=== PATIENT | male | born 1970 ===

== ENCOUNTER → 2017-02-06 | Outpatient (REF) | LOC: ZLAB.WCH 14:53 | DX: Z01.89 Encounter for other specified special examinations (principal) | CPT/HCPCS: G0103 ==

== ENCOUNTER → 2018-02-08 | Outpatient (REF) ==
[2018-02-08 16:59] LABS: PSA-TOTAL 1.43 ng/mL (0-4)
[2018-02-08 17:49] LABS: THYROID STIMULATING HORMONE 1.87 uIU/mL (0.465-4.680)
== END ==
LOC: ZLAB.WCH 15:57
PROVIDERS: Internal Medicine
DX: Z01.89 Encounter for other specified special examinations (principal)
CPT/HCPCS: G0103